=== PATIENT | female | born 1960 | race American Indian/Alaskan Native ===

== ENCOUNTER 2017-02-06 08:48 | Outpatient (CLI) | payer OTHER ==
[2017-02-06] MEDS ORDERED: PROVENTIL IH ONE (09:08)
== END 2017-02-06 08:49 | disposition home or self-care (01) ==
LOC: PF 08:48
PROVIDERS: ATTEND Internal Medicine
DX: J45.909 Unspecified asthma, uncomplicated (principal); F41.9 Anxiety disorder, unspecified; F32.9 Major depressive disorder, single episode, unspecified; R03.0 Elevated blood-pressure reading, without diagnosis of hypertension; M85.80 Other specified disorders of bone density and structure, unspecified site; R00.2 Palpitations
CPT/HCPCS: 94060; 94640

== ENCOUNTER 2017-07-26 06:28 | Day surgery (SDC) | payer OTHER ==
[2017-07-26] MEDS ORDERED: ECOTRIN PO ONE (06:52)
[2017-07-26] MEDS ORDERED: NACL 0.9% 500 ML 500 ML IV SCH (07:00)
[2017-07-26 07:16] LABS: Basophils % (Auto) 0.7 % (0.0-1.8); Eosinophils # (Auto) 0.2 K/mm3 (0.0-0.4); Eosinophils % (Auto) 2.5 % (0.0-4.3); Hemoglobin 15.2 gm/dl (10.1-14.3); Lymphocytes # (Auto) 1.9 K/mm3 (1.2-5.4); Lymphocytes % (Auto) 30.9 % (13.4-35.0); Mean Corpuscular HGB Conc 35 % (30-34); Mean Corpuscular Hemoglobin 33 pg (28-32); Mean Corpuscular Volume 95 fl (79-97); Monocytes # (Auto) 0.6 K/mm3 (0.0-0.8); Monocytes % (Auto) 10.5 % (0.0-7.3); Platelet Count 267 K/mm3 (140-440); Red Blood Count 4.54 M/mm3 (3.65-5.03); Red Cell Distribution Width 13.2 % (13.2-15.2)
[2017-07-26 07:26] LABS: INR 0.85 (0.87-1.13)
[2017-07-26 08:30] LABS: BUN/Creatinine Ratio 16; Blood Urea Nitrogen 14 mg/dL (7-17); Calcium 10.3 mg/dL (8.4-10.2); Hemolysis Index 4
[2017-07-26] MEDS ORDERED: CALAN ONE (09:02)
[2017-07-26] MEDS ORDERED: NITROGLYCERIN SYRINGE 3 ML ONE (09:02)
[2017-07-26] MEDS ORDERED: HEPARIN/NS 5000 UNIT/500ML(CATH LAB) 1,000 ML IR ONE (09:02)
[2017-07-26] MEDS ORDERED: XYLOCAINE 2% INFILTRATI ONE (09:02)
[2017-07-26] MEDS ORDERED: HEPARIN 10,000 UNITS/10 ML ONE (09:02)
[2017-07-26] MEDS ORDERED: SUBLIMAZE ONE (09:03)
[2017-07-26] MEDS: VERSED ONE ×2 (09:42→09:53)
[2017-07-26 12:40] VITALS: BP 132/73
--- NOTE | 2017-07-27 00:02 | Cardiac Catherization Report ---
CARDIAC CATHETERIZATION REFERRING PHYSICIAN: Dr. Ballard. INDICATION FOR PROCEDURE: The patient is a very pleasant 57-year-old female with multiple medical issues including hypertension, anxiety, who presents here with recurrent chest pain, questionable abnormal stress test with a small apical inferolateral defect. Given recurrent chest pain and abnormal stress test, she is referred for left heart catheterization. Risks, benefits, and potential alternatives were explained in length prior to obtaining informed consent. PROCEDURE IN DETAIL: The patient was brought to the labeling strategist in a postabsorptive state and prepped and draped in sterile fashion. Braydon's test in right hand was normal. A 2 mL of 2% lidocaine was used to anesthetize the right wrist. A standard 6-[place] hydrophilic sheath was used to cannulate the right radial artery via modified Seldinger technique. All exchanges were performed to exchange a J-tip guidewire. JL3.5 catheter used to engage the left main. No dampening or ventricularization. Cineangiography performed in all projections. Next, JR4 catheter used to cross the aortic valve under fluoroscopic guidance. Left ventriculography performed in 30 [place] and 30 [place] projections via hand injections, catheter flushed. Manual pullback performed with continuous pressure monitoring. Catheter used to engage the right coronary. No dampening or ventricularization. Cineangiography was performed in all projections. Catheter removed from the body of wire, sheath removed. Manual pressure used to achieve hemostasis. Next, due to recurrent chest pain and hypertension, a root aortogram is performed with a power injector in the [place] projection. Root aortogram reveals normal contour, normal grade vessel anatomy. No dissection, ulcer, or insufficiency. I directly supervised the administration of moderate sedation with fentanyl and Versed from 9:50 a.m. to 10:10 a.m. No immediate complications are noted. FINDINGS: Aortic pressure is 150/80, LV is 150, LVEP of 20 mmHg. Left ventriculography revealed normal systolic performance with estimated ejection fraction of 55% -60%. No evidence of aortic stenosis. CORONARY ANATOMY: This is a right dominant system. Right coronary is a moderate sized vessel, courses AV groove, distally bifurcates in the posterior descending and posterolateral branch. No discrete stenosis noted. Left main without significant disease bifurcates the left anterior descending and left circumflex. No significant disease in the left main. LAD is a moderate sized vessel, courses anterior groove, wraps around the apex. There is a moderate length intramyocardial segment WINTER 3 flow noted. No evidence of diastolic collapse. Left circumflex is a moderate sized vessel, courses AV groove. No significant disease. Left ventriculography revealed normal systolic performance with an estimated ejection fraction of 55%-60%. No evidence of stenosis. Root aortogram as aforementioned. CONCLUSIONS: 1. No angiographic evidence of significant epicardial coronary disease in this right dominant system. 2. Normal left ventricular systolic performance with an estimated ejection fraction of 55% -60%. 3. No evidence of aortic stenosis. 4. Root aortography without evidence of dissection, penetrating aortic ulcer, or aortic insufficiency. 5. Aggressive risk factor modification, blood pressure control, standard radial care. Follow up with Dr. Ballard in the office. Results of the procedure were explained at length to the patient and family. All questions and concerns addressed. [facility]# [id number] JOE/JOSEY
== END 2017-07-26 06:29 | disposition home or self-care (01) ==
LOC: CATHLABREC 06:28
PROVIDERS: ATTEND Internal Medicine
DX: R07.89 Other chest pain (principal); R06.02 Shortness of breath; I10 Essential (primary) hypertension; E78.2 Mixed hyperlipidemia; F41.9 Anxiety disorder, unspecified; Z90.710 Acquired absence of both cervix and uterus; Z82.49 Family history of ischemic heart disease and other diseases of the circulatory system
CPT/HCPCS: 36415; 80048; 85025; 85610; 85730; 93005; 93010; 93458; 93567; 99156; 99157; C1894; J1644; J2250; J3010; J7040; Q9967